=== PATIENT | male | born 1985 | race Two or more races ===

== ENCOUNTER 2019-09-02 14:37 | Emergency (ER) | payer OTHER ==
[2019-09-02 15:30] VITALS: BP 102/63; PULSE 77; TEMP 98; BMI 32.3
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
[2019-09-02] MEDS ORDERED: IBUPROFEN 600 MG TABLET (FP) PO ONE ×2 (17:18→17:19)
== END 2019-09-02 17:32 | disposition home or self-care (01) ==
LOC: JERFT 14:37
DX: S62.001A Unspecified fracture of navicular [scaphoid] bone of right wrist, initial encounter for closed fracture (principal); S13.4XXA Sprain of ligaments of cervical spine, initial encounter; S49.81XA Other specified injuries of right shoulder and upper arm, initial encounter; V43.52XA Car driver injured in collision with other type car in traffic accident, initial encounter; Y92.414 Local residential or business street as the place of occurrence of the external cause; Y93.89 Activity, other specified; Y99.8 Other external cause status
CPT/HCPCS: 73030-TC-RT-FY; 73110-TC-RT-FY; 73130-TC-RT-FY; 99281-25

== ENCOUNTER 2022-10-26 11:45 | Emergency (ER) | payer OTHER ==
[2022-10-26 12:12] VITALS: BP 127/75; PULSE 78; RESP 17; TEMP 98.2; BMI 34.7
[2022-10-26] MEDS ORDERED: ACETAMINOPHEN 500 MG TABLET (FP) PO ONE (12:59)
[2022-10-26] MEDS ORDERED: ACETAMINOPHEN 500 MG TABLET (FP) ONE (13:04)
== END 2022-10-26 15:32 | disposition home or self-care (01) ==
LOC: JERFT 11:45
DX: M54.50 Low back pain, unspecified (principal); M25.561 Pain in right knee; M25.512 Pain in left shoulder; V44.5XXA Car driver injured in collision with heavy transport vehicle or bus in traffic accident, initial encounter; Y93.I9 Activity, other involving external motion
CPT/HCPCS: 70450-TC; 72070-TC-FY; 72100-TC-FY; 73030-TC-LT-FY; 73562-TC-RT-FY; 99284-25